=== PATIENT | female | born 1950 | race Caucasian/White ===

== ENCOUNTER → 2017-08-03 | Outpatient (CLI) | payer OTHER | LOC: FIMAGING 07:48 | PROVIDERS: ATTEND Obstetrics & Gynecology | DX: Z12.31 Encounter for screening mammogram for malignant neoplasm of breast (principal); Z80.3 Family history of malignant neoplasm of breast | CPT/HCPCS: G0202 ==

== ENCOUNTER → 2018-04-03 | Outpatient (CLI) | payer OTHER | LOC: BMCIMAGING 09:13 | PROVIDERS: ATTEND Internal Medicine Rheumatology | DX: M79.641 Pain in right hand (principal); M79.642 Pain in left hand ==

== ENCOUNTER → 2018-08-04 | Outpatient (CLI) | payer OTHER | LOC: FIMAGING 08:28 | PROVIDERS: ATTEND Obstetrics & Gynecology | DX: Z12.31 Encounter for screening mammogram for malignant neoplasm of breast (principal); Z80.3 Family history of malignant neoplasm of breast ==

== ENCOUNTER 2018-08-11 05:46 | Day surgery (SDC) | payer OTHER ==
[2018-08-11] MEDS ORDERED: LIDOCAINE 1% 2 ML INJ ID PRN (06:02)
[2018-08-11] MEDS ORDERED: ceFAZolin 2 GM/DEXTROSE 100 ML IV ONE (06:02)
[2018-08-11] MEDS ORDERED: LR 1,000 ML IV ONE (06:02)
--- NOTE | 2018-08-11 06:43 | PDHPUP ---
History & Physical Update H&P update statement: This history and physical update is based on an assessment of the patient which was completed after admission or registration (within 24 hours), but prior to the surgery/procedure. H&P update: H&P reviewed & patient examined, no change in patient's condition since H&P completed
[2018-08-11] MEDS ORDERED: RANITIDINE 50 MG/2 ML VIAL ONE (06:46)
[2018-08-11] MEDS ORDERED: DEXAMETHASONE 4 MG/ML VIAL ONE (06:46)
[2018-08-11] MEDS ORDERED: fentaNYL 100 MCG/2 ML INJ ONE (06:46)
[2018-08-11] MEDS ORDERED: LIDOCAINE 2% 100 MG/5 ML SYR ONE (06:46)
[2018-08-11] MEDS ORDERED: ONDANSETRON 4 MG/2 ML VIAL ONE ×2 (06:46→07:42)
[2018-08-11] MEDS ORDERED: MIDAZOLAM 2 MG/2 ML VIAL ONE (06:47)
[2018-08-11] MEDS ORDERED: PROPOFOL 200 MG/20 ML VIAL ONE (06:47)
[2018-08-11] MEDS ORDERED: BUPIVACAINE 0.25% 30 ML SDV ONE (06:59)
[2018-08-11] MEDS ORDERED: CHLORHEXIDINE GLUC HIBICLENS 118 ML BTL TP ONE (06:59)
[2018-08-11] MEDS ORDERED: GENTAMICIN SULFATE 80 MG/2 ML VIAL ONE (07:00)
[2018-08-11] MEDS ORDERED: EPINEPHrine 1 MG/ML INJ ONE (07:00)
[2018-08-11] MEDS ORDERED: IOPAMIDOL (ISOVUE-M 300) 15 ML VIAL ONE ×2 (07:00→07:01)
--- NOTE | 2018-08-11 07:02 | PDANEPAE ---
ANE History of Present Illness Fx L1-L2 vertebrae, kyphoplasty ANE Past Medical History - Cardiovascular History Hx Hypertension: No Hx Arrhythmias: No Hx Chest Pain: No Hx Coronary Artery / Peripheral Vascular Disease: No Hx CHF / Valvular Disease: No Hx Palpitations: No - Pulmonary History Hx COPD: No Hx Asthma/Reactive Airway Disease: No Hx Recent Upper Respiratory Infection: No Hx Oxygen in Use at Home: No Hx Sleep Apnea: No Sleep Apnea Screening Result - Last Documented: Positive - Neurologic History Hx Cerebrovascular Accident: No Hx Seizures: No Hx Dementia: No - Endocrine History Hx Diabetes: No - Renal History Hx Renal Disorders: No - Liver History Hx Hepatic Disorders: No - Neurological & Psychiatric Hx Hx Neurological and Psychiatric Disorders: No - Cancer History Hx Cancer: Yes Cancer History Comment: UTERINE. MELANOMA - Congenital Disorder History Hx Congenital Disorders: No - GI History Hx Gastrointestinal Disorders: No - Other Health History Other Health History: OSTEOPENIA. FELL X2 MOST RECENT INJURY FX L1-2. CONGENTIAL POSTERIOR FUSION C2/3. BRUISES EASILY. RECENT DENTAL EXTRACTION - Chronic Pain History Chronic Pain: Yes (UPPER LUMBAR REGION) - Surgical History Prior Surgeries: TRUDI SHDR. TUBAL PREG. TRUDI BUNIONECTOMY. HYSTERECTOMY. REMVL MELANOMA UNDER LT EYE. DAE. TRUDI SHLDR ANE Review of Systems Review of Systems: - Exercise capacity METS (RN): 4 METS ANE Patient History - Allergies Allergies/Adverse Reactions: oxycodone [From Percocet] Allergy (Verified 08/11/18 06:49) - Home Medications Home Medications: Herbals/Supplements -Info Only DAILY 08/10/18 [Last Taken 08/10/18] ZOLPIDEM TARTRATE HS 08/10/18 [Last Taken 08/10/18] - NPO status NPO Since - Liquids (Date): 08/10/18 NPO Since - Liquids (Time): 19:00 NPO Since - Solids (Date): 08/10/18 NPO Since - Solids (Time): 19:00 - Smoking Hx Smoking Status: Never smoked ANE Labs/Vital Signs - Vital Signs Blood Pressure: 138/89 Heart Rate: 70 Respiratory Rate: 18 O2 Sat (%): 93 Height: 168.91 cm Weight: 63.503 kg ANE Physical Exam - Airway Neck exam: FROM Mallampati Score: Class 1 Mouth exam: normal dental/mouth exam - Pulmonary Pulmonary: no respiratory distress - Cardiovascular Cardiovascular: regular rate and rhythym - ASA Status ASA Status: II ANE Anesthesia Plan Anesthesia Plan: GA w LMA
[2018-08-11] MEDS ORDERED: MEPERIDINE 25 MG/0.5 ML AMP IVP PRN (07:38)
[2018-08-11] MEDS ORDERED: HYDROCODONE/APAP 5/325 TAB PO PRN (07:38)
[2018-08-11] MEDS ORDERED: HYDROmorphONE/DILAUDID 2 MG/ML INJ IVP PRN (07:38)
[2018-08-11] MEDS ORDERED: NALOXONE HCL 0.4 MG/ML INJ IVP PRN (07:38)
[2018-08-11] MEDS ORDERED: PROMETHAZINE HCL 25 MG/ML INJ IVP PRN (07:38)
[2018-08-11] MEDS ORDERED: NS 500 ML IV PRN (07:38)
[2018-08-11] MEDS ORDERED: KETOROLAC 30 MG/1 ML SDV ONE (07:42)
[2018-08-11] MEDS ORDERED: PHENYLEPHRINE HCL 100 MCG/ML SYR ONE (07:42)
--- NOTE | 2018-08-11 08:23 | NEUSURGPN ---
Date of Surgery: 08/11/18 Post Op Day: 0 Assessment/Plan: s/p L1 kyphoplasty d/c when same day surgery criteria met fu in clinic in 2 weeks no need for brace shower in 3 days remove bandaids in 3 days call with any changes in neuro status Subjective: doing well pain controlled Objective: Leslie LOMAX 4, sensation intact, dressing c/d/i Urinary Catheter in Place: No - Physician Patient Seen by : [facility] Physical Exam - Vitals, I&O, Labs I and O 08/10/18 08/11/18 08/12/18 05:59 05:59 05:59 Weight 63.503 kg 63.503 kg Vital Signs Temp Pulse Resp BP Pulse Ox 36.7 C 70 18 138/89 H 93 08/11/18 06:21 08/11/18 07:03 08/11/18 07:03 08/11/18 07:03 08/11/18 07:03 ICD10 Worksheet Patient Problems: Problems Problem Status Onset Lumbar compression fracture Acute Lumbar compression fracture Acute - ICD10 Problem Qualifiers (1) Lumbar compression fracture (2) Lumbar compression fracture
--- NOTE | 2018-08-11 08:47 | GOP ---
DATE OF OPERATION: 08/11/2018 SURGEON: Kinsey Morrison DO NEUROSURGEON: Kinsey Morrison D.O. SALES TRAINING MANAGER: None. PREOPERATIVE DIAGNOSIS: L1 compression fracture. POSTOPERATIVE DIAGNOSIS: L1 compression fracture. PROCEDURE PERFORMED: L1 kyphoplasty. FINDINGS: SPECIMENS: None. ESTIMATED BLOOD LOSS: 15 mL. INDICATIONS: This is a 67-year-old female with an [id number] L1 compression fracture on MRI w ith back pain. She elected to move forward with kyphoplasty. She was identified, consented. Sites were marked. DESCRIPTION OF PROCEDURE: Brought to the operating room, anesthetized under general endotracheal ane sthesia, rolled onto the Christopher table. All pressure points were appropriately padded, prepped and d raped in the usual sterile fashion. Arm was brought in and in the AP and lateral plane, counting up from the sacrum, marked the L1 vertebral body. Anesthetized. Two stab incisions bilaterally. Made a stab incision with an 11 blade. Navigating the Kyphon Jamshidi style needles down in the AP and t he lateral plane until we were in the vertebral body drilling anteriorly, aiming to fill the superior portion of the vertebral body where there appears to be more edema. We then placed the balloons, in flated them to less than 400 psi with approximately 2.5 cc of balloon. We then mixed some cement whe n it was in the appropriate position in the AP and lateral planes. Under fluoro, we administered the Kyphon cement until it had an excellent fill of the vertebral body superiorly, inferiorly with no re tropulsion. We then verified that it was hardened, backed the Jamshidi cannulas out, and closed the incisions. The final x-rays showed excellent fill at L1. Incisions were closed with a 4-0 Monocryl and Steri-Strips, dressed with a Band-Aid. Patient tolerated the procedure well no complications. FLUIDS: 500 mL crystalloid. URINE OUTPUT: None. DRAINS: None. COMPLICATIONS: None. /[id number]/MODL
[2018-08-11 09:37] VITALS: BP 134/87
--- NOTE | 2018-08-14 15:00 | POSTANESTH ---
Post Anesthetic Evaluation Cardiovascular Status: Normal, Stable Respiratory Status: Normal, Stable Level of Consciousness/Mental Status: Can Participate in Eval Pain Control: Adequate, Prn Tx Ordered Nausea/Vomiting Control: Adequate, Prn Tx Ordered Complications Possibly Related to Anesthesia: None Noted
== END 2018-08-11 10:17 | disposition home or self-care (01) ==
LOC: FSGY 05:46
PROVIDERS: ATTEND Neurological Surgery
PROC: BR191ZZ Fluoroscopy of Lumbar Spine using Low Osmolar Contrast (ICD-10-PCS; principal; 2018-08-11 07:15)
PROC: 0QU03JZ Supplement Lumbar Vertebra with Synthetic Substitute, Percutaneous Approach (ICD-10-PCS; principal; 2018-08-11 07:15)
DX: S32.019A Unspecified fracture of first lumbar vertebra, initial encounter for closed fracture (principal); W01.0XXD Fall on same level from slipping, tripping and stumbling without subsequent striking against object, subsequent encounter; M54.12 Radiculopathy, cervical region; M54.16 Radiculopathy, lumbar region; M50.320 Other cervical disc degeneration, mid-cervical region, unspecified level; M51.36 Other intervertebral disc degeneration, lumbar region
CPT/HCPCS: C1713; J0171; J0690; J1100; J1580; J1885; J2001; J2250; J2370; J2405; J2704; J2780; J3010; Q9967

== ENCOUNTER → 2018-08-28 | Outpatient (CLI) | payer OTHER | LOC: FIMAGING 13:40 | DX: Z09 Encounter for follow-up examination after completed treatment for conditions other than malignant neoplasm (principal); Z98.890 Other specified postprocedural states; M51.36 Other intervertebral disc degeneration, lumbar region; M51.37 Other intervertebral disc degeneration, lumbosacral region ==

== ENCOUNTER → 2018-09-06 | Outpatient (CLI) | payer OTHER | LOC: FIMAGING 13:54 | PROVIDERS: ATTEND Internal Medicine | DX: Z13.820 Encounter for screening for osteoporosis (principal); M81.0 Age-related osteoporosis without current pathological fracture ==

== ENCOUNTER → 2019-04-26 | Outpatient (CLI) | payer OTHER | LOC: FIMAGING 08:26 ==

== ENCOUNTER → 2019-04-27 | Outpatient (CLI) | payer OTHER | LOC: FIMAGING 08:01 ==